=== PATIENT | female | born 1965 | race Caucasian/White ===

== ENCOUNTER 2017-08-16 14:27 | Emergency (ER) | payer BC ==
[2017-08-16] MEDS ORDERED: Famotidine 20 MG Tab PO ONE (14:54)
[2017-08-16] MEDS ORDERED: diphenhydrAMINE 50 MG/ML SDV IM ONE (14:54)
--- NOTE | 2017-08-16 15:08 | EDM.PDOC ---
ED HPI GENERAL MEDICAL PROBLEM - General Chief Complaint: Allergic Reaction Stated Complaint: ALLERGIC REACTION TO MEDS Time Seen by Provider: 08/16/17 14:40 Source of Information: Reports: Patient History Limitations: Reports: No Limitations - History of Present Illness INITIAL COMMENTS - FREE TEXT/NARRATIVE: Resents with her reporting she thinks she is having an allergic reaction she states that on May 30 she was started on losartan. About a month later she had some itchiness on an extremity. On Tuesday she started having some itchiness all over. She saw her primary provider yesterday who gave her a steroid injection and put her on oral prednisone. She also took Benadryl intermittently over the weekend. She took Benadryl today 25 mg about noon. Now she states that she is kind of itchy all over and has a rash on her face and other parts of her body which are not demonstrated. She also takes quite a few supplements and [id number] medications. No breathing or swallowing problems or chest pain. - Related Data Allergies Allergy/AdvReac Type Severity Reaction Status Date / Time aspirin Allergy Other Verified 08/16/17 14:45 Sulfa (Sulfonamide Allergy Other Verified 08/16/17 14:45 Antibiotics) Past Medical History Cardiovascular History: Reports: Hypertension Social & Family History - Tobacco Use Smoking Status *Q: Never Smoker Second Hand Smoke Exposure: No - Recreational Drug Use Recreational Drug Use: No ED ROS ALLERGIC REACTION - Review of Systems Review Of Systems: ROS reveals no pertinent complaints other than HPI. ED EXAM GENERAL NO PERIP PULSE - Physical Exam Exam: See Below Exam Limited By: No Limitations General Appearance: Alert, No Apparent Distress Ears: Normal External Exam, Normal TMs Nose: Normal Inspection Throat/Mouth: Normal Inspection, Normal Oropharynx Head: Atraumatic, Normocephalic Neck: Normal Inspection Respiratory/Chest: No Respiratory Distress, Lungs Clear, Normal Breath Sounds, No Accessory Muscle Use Cardiovascular: Normal Peripheral Pulses, Regular Rate, Rhythm, No Murmur GI/Abdominal: Soft Rectal (Female) Exam: Normal Exam Psychiatric: Normal Affect, Normal Mood Skin Exam: Warm, Dry, Intact, Normal Color, No Rash, Other (The patient's cheeks are a little flushed but otherwise full body inspection revealed no rash whatsoever) Lymphatic: No Adenopathy Course - Vital Signs Last Recorded V/S: Last Vital Signs Temp 36.9 C 08/16/17 14:46 Pulse 100 08/16/17 14:46 Resp 18 08/16/17 14:46 BP 187/105 H 08/16/17 14:46 Pulse Ox 95 08/16/17 14:46 - Orders/Labs/Meds Meds: Medications Discontinued Medications Generic Name Dose Route Start Last Admin Trade Name Kerry PRN Reason Stop Dose Admin Diphenhydramine HCl 50 mg 08/16/17 14:54 Benadryl IM 08/16/17 14:55 ONETIME ONE Famotidine 20 mg 08/16/17 14:54 Pepcid PO 08/16/17 14:55 ONETIME ONE Departure - Departure Time of Disposition: 15:23 Disposition: Home, Self-Care 01 Condition: Good Clinical Impression: Itch - Discharge Information Referrals: Lulu Parson, [facility] [Primary Care Provider] - Additional Instructions: 1. Prednisone takes some time to work. You may take Benadryl 25-50 mg 3 or 4 times a day as needed if you have trouble with itching. 2. See her primary provider to review your medication regimen 3. Turned promptly for breathing problems.
== END 2017-08-16 15:29 | disposition home or self-care (01) ==
LOC: MW.ED 14:27
DX: L29.9 Pruritus, unspecified (principal); I10 Essential (primary) hypertension; Z88.2 Allergy status to sulfonamides; Z88.6 Allergy status to analgesic agent
CPT/HCPCS: 96372; 99283; A9270; J1200

== ENCOUNTER 2018-11-08 18:47 | Emergency (ER) | payer BC ==
[2018-11-08] MEDS ORDERED: Aspirin 81 MG Tab.Chew PO ONE (19:22)
[2018-11-08] MEDS ORDERED: Pantoprazole 40 MG Vial IVPUSH ONE (19:22)
[2018-11-08] MEDS ORDERED: Sodium Chloride 0.9% 10 ML Syringe FLUSH PRN (19:22)
[2018-11-08] MEDS ORDERED: Sodium Chloride 0.9% 2.5 ML Syringe FLUSH PRN (19:22)
[2018-11-08] MEDS ORDERED: Water For Injection, Sterile 50 ML SDV INJECT ONE (19:27)
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
[2018-11-08] MEDS ORDERED: Water For Injection, Sterile 20 ML ONE (19:33)
[2018-11-08 19:43] LABS: CHLORIDE,CL 103 mmol/L (98-107); SODIUM,NA 139 mmol/L (136-145)
--- NOTE | 2018-11-08 20:11 | CR ---
INDICATION: Chest pain and shortness of breath COMPARISON: None available. FINDINGS: An erect single view of the chest was obtained at 1925 hours. The lungs are clear. No focal or diffuse infiltrates are present. The heart is normal in size. The mediastinum is normal in appearance. The osseous structures are normal in appearance for the patient`s age. IMPRESSION: Normal chest single view. Dictated by Alejandro Echeverria MD @ Nov 08 2018 8:09PM Signed by Dr. Alejandro Echeverria @ Nov 08 2018 8:10PM
== END 2018-11-08 20:47 | disposition home or self-care (01) ==
LOC: MW.ED 18:47
DX: R07.89 Other chest pain (principal); Z88.6 Allergy status to analgesic agent; Z88.2 Allergy status to sulfonamides
CPT/HCPCS: 36415; 71045; 80053; 81003; 84484; 85025; 85379; 85610; 93005; 96374; 99285; C9113; 99284